=== PATIENT | male | born 1955 | race Caucasian/White ===

== ENCOUNTER → 2018-05-08 | Outpatient (CLI) | payer OTHER | LOC: FIMAGING 12:47 | PROVIDERS: ATTEND Orthopaedic Surgery | DX: S83.252A Bucket-handle tear of lateral meniscus, current injury, left knee, initial encounter (principal); M25.462 Effusion, left knee; M71.22 Synovial cyst of popliteal space [Baker], left knee; Y93.9 Activity, unspecified ==

== ENCOUNTER 2018-06-10 11:07 | Day surgery (SDC) | payer OTHER ==
--- NOTE | 2018-06-09 14:39 | PDGENHP ---
History & Physical Chief Complaint: L knee pain Relevant Physical Exam: Allergies. PENICILLIN V: Other (Mild). Physical ExamR knee: full ext. neutral alignment. 150 flex. L knee: 3 ext. 130 flex. positive mario's. hesitant pivot shift. 3v L knee 04/20/18: no acute bony abnormalities or fx. NVI. Assessment / Plan. L KNEE SCOPE WITH LATERAL MENISCECTOMY SCHEDULED FOR 06/10/18. fu 2 weeks post-operatively. Discuss L knee scope with lateral meniscetomy. Reports symptoms are improved today. No noticeable pain. The knee does not necessarily feel stable, but reports trustworthiness is gradually increasing. He avoids activities that may potentially exacerbate his pain and mechanical symptoms. . No left knee locking in flexion and abduction. L knee with full extension, 160 flexion. Grade I Mario. negative pivot shift. R knee with full extension, 170 flexion. MRI L KNEE 05/08/18: partial ACL tear, displaced bucket handle tear lateral meniscus. While symptoms are currently minimal, it is extremely likely the meniscus will displace again and cause mechnical symptoms. . Recommend Will strongly consider operative management. Discussed risks and benefits associated with surgery. Specifically, left knee scope with lateral meniscectomy. Do not recommend repair due to patient age. May consider ACL recon at a later date pending arthroscopic findings and stability following lateral meniscectomy. Will wants surgery. Scheduled for 06/10/18. fu post-operatively. 25 minutes was spent in face to face contact, greater than 50% of which was spent discussing and coordinating patient care. 1. Knee pain - Left. M25.562: Pain in left knee. 2. Tear of lateral meniscus of knee - Left. S83.282A: Other tear of lateral meniscus, current injury, left knee, initial encounter
--- NOTE | 2018-06-10 09:08 | PDHPUP ---
History & Physical Update H&P update statement: This history and physical update is based on an assessment of the patient which was completed after admission or registration (within 24 hours), but prior to the surgery/procedure. H&P update: changes noted (L knee pain, lateral menisectomy)
[2018-06-10] MEDS ORDERED: CLINDAMYCIN 900 MG/DEXTROSE 50 ML IV ONE (11:25)
[2018-06-10] MEDS ORDERED: LR 1,000 ML IV ONE (11:26)
[2018-06-10] MEDS ORDERED: ROPIVACAINE HCL 20 MG/10 ML INJ EP ONE ×2 (12:24→13:17)
[2018-06-10] MEDS ORDERED: MIDAZOLAM 2 MG/2 ML VIAL IVP ONE (12:37)
--- NOTE | 2018-06-10 12:37 | PDANEPAE ---
ANE History of Present Illness knee scope ANE Past Medical History - Cardiovascular History Hx Hypertension: No Hx Arrhythmias: No Hx Chest Pain: No Hx Coronary Artery / Peripheral Vascular Disease: No Hx CHF / Valvular Disease: No Hx Palpitations: No - Pulmonary History Hx COPD: No Hx Asthma/Reactive Airway Disease: No Hx Recent Upper Respiratory Infection: No Hx Oxygen in Use at Home: No Hx Sleep Apnea: No Sleep Apnea Screening Result - Last Documented: Negative - Neurologic History Hx Cerebrovascular Accident: No Hx Seizures: No Hx Dementia: No - Endocrine History Hx Diabetes: No Hypothyroid: No Hyperthyroid: No - Renal History Hx Renal Disorders: No - Liver History Hx Hepatic Disorders: No - Neurological & Psychiatric Hx Hx Neurological and Psychiatric Disorders: No - Cancer History Hx Cancer: No - Congenital Disorder History Hx Congenital Disorders: No - GI History Hx Gastrointestinal Disorders: No - Other Health History Other Health History: INJURED KNEE 01/2018. TOP LEFT FRONT TOOTH MISSING. AND BACK RIGHT - Chronic Pain History Chronic Pain: Yes (LT KNEE) - Surgical History Prior Surgeries: RT WRIST ORIF WITH POST HARDWARE REMVL ANE Review of Systems Review of systems is: negative Review of Systems: - Exercise capacity Exercise capacity: >=4 METS METS (RN): 6 METS ANE Patient History - Allergies Allergies/Adverse Reactions: Penicillins Allergy (Verified 05/27/18 15:23) Unknown - Home Medications Home medications: home medication list seen and reviewed Home Medications: NK [No Known Home Meds] 05/27/18 [Last Taken Unknown] - NPO status NPO Since - Liquids (Date): 06/10/18 NPO Since - Liquids (Time): 11:00 NPO Since - Solids (Date): 06/09/18 NPO Since - Solids (Time): 22:00 - Smoking Hx Smoking Status: Never smoked ANE Labs/Vital Signs - Vital Signs Blood Pressure: 124/72 Heart Rate: 44 Respiratory Rate: 16 O2 Sat (%): 96 Height: 187.96 cm Weight: 77.111 kg ANE Physical Exam - Airway Mallampati Score: Class 2 Mouth exam: normal dental/mouth exam - Pulmonary Pulmonary: no respiratory distress - Cardiovascular Cardiovascular: regular rate and rhythym - ASA Status ASA Status: I ANE Anesthesia Plan Anesthesia Plan: GA w LMA
[2018-06-10] MEDS ORDERED: LIDOCAINE 2% 5 ML SDV ONE (12:49)
[2018-06-10] MEDS ORDERED: ONDANSETRON 4 MG/2 ML VIAL ONE (12:50)
[2018-06-10] MEDS ORDERED: fentaNYL 100 MCG/2 ML INJ ONE (12:50)
[2018-06-10] MEDS ORDERED: PROPOFOL 200 MG/20 ML VIAL ONE (12:50)
[2018-06-10] MEDS ORDERED: KETOROLAC 30 MG/1 ML SDV ONE (12:50)
[2018-06-10] MEDS ORDERED: DEXAMETHASONE 4 MG/ML VIAL ONE (12:50)
[2018-06-10] MEDS ORDERED: ONDANSETRON 4 MG/2 ML VIAL IVP PRN (14:03)
[2018-06-10] MEDS ORDERED: LR 500 ML IV PRN (14:03)
[2018-06-10] MEDS ORDERED: HYDROCODONE/APAP 5/325 TAB PO PRN (14:03)
[2018-06-10] MEDS ORDERED: ALBUTEROL 3 ML DEYVIAL IH PRN (14:03)
[2018-06-10] MEDS ORDERED: NALOXONE HCL 0.4 MG/ML INJ IVP PRN (14:03)
[2018-06-10] MEDS ORDERED: fentaNYL 100 MCG/2 ML INJ IVP PRN (14:03)
--- NOTE | 2018-06-10 14:03 | POSTANESTH ---
Post Anesthetic Evaluation Cardiovascular Status: Normal, Stable Respiratory Status: Normal, Stable Level of Consciousness/Mental Status: Can Participate in Eval Pain Control: Adequate, Prn Tx Ordered Nausea/Vomiting Control: Adequate, Prn Tx Ordered Complications Possibly Related to Anesthesia: None Noted
[2018-06-10] MEDS ORDERED: OXYCODONE/APAP 5/325 TAB PO PRN (14:08)
--- NOTE | 2018-06-10 14:43 | GOP ---
[f rep st] OPERATIVE REPORT DATE OF OPERATION: 06/10/2018 SURGEON: Matias Masters MD PREOPERATIVE DIAGNOSIS: 1. Left knee lateral meniscus bucket-handle tear. 2. Partial anterior cruciate ligament tear. 3. Medial meniscus tear. POSTOPERATIVE DIAGNOSIS: 1. Left knee lateral meniscus bucket-handle tear. 2. Partial anterior cruciate ligament tear. 3. Medial meniscus tear. PROCEDURE PERFORMED: 1. Arthroscopic partial medial and lateral meniscectomies. 2. Arthroscopic anterior cruciate ligament debridement and synovectomy. FINDINGS: INDICATIONS: 62-year-old male with left knee pain. Prior mechanical locking, catching. Did well wi th conservative management but always felt different in deep flexion and squatting. Active athlete. Clinical, radiographic, and MRI confirmed partial ACL tear with a bucket-handle component to the late ral meniscus with a medial meniscus tear. He had no prior surgeries on the left knee. Patient identified in the preoperative holding area. Consent, laterality, and preoperative antibioti cs were confirmed and delivered. All questions were answered. His was at the bedside. DESCRIPTION OF PROCEDURE: Patient brought into the operating room. General anesthesia. Placed over on the OR table. All extremities well padded. Left thigh tourniquet was placed. Left lower extrem ity prepped and draped in the usual sterile fashion. Surgical time-out was performed. Exam under an esthesia revealed a grade 1 José Luis's with a firm endpoint and a negative pivot shift. He had full e xtension, to 160 degrees flexion. Esmarch exsanguination to 250 mmHg. Total tourniquet time was 30 minutes. Standard 2-portal technique diagnostic arthroscopy included a grade 1 patella, grade 1 softening of t he trochlea, but overall in good condition. The medial compartment also with grade 1 softening. The undersurface of the posterior horn into the middle horn showed a chronic tear that had a displaced s uperior flap. This was beveled off and trimmed, and a medial meniscectomy was performed. The ACL an teromedial bundle was still attached vertically. The posterolateral bundle was torn. There was syno vitis throughout. A synovectomy of the anterior medial and lateral compartments, extensive synovecto my, was performed. Upon removal of the fat pad and synovectomy, we saw the lateral meniscus. With t he lateral meniscus in 90 degrees flexion, the meniscus was dislocated and translocated anteriorly. And then when we went into extension and back into figure 4, it reduced easily, was freely mobile. I t was approximately 60% of the volume of the posterior and middle horn in the red-white junction. Be cause of the chronicity and his age, we decided to do a lateral meniscectomy, and then we trimmed off the posterior portion and then used a shaver to trim down the rest of the middle horn. The anterior horn looked excellent. We beveled the anterior middle horn junction. We switched portals and then beveled the anterior middle horn junction of the medial meniscus. Arthroscopic fluid and debris were removed. 10 cc of 0.2% ropivacaine was injected into the joint, 5 cc to each portal site for 20 cc total. Monocryl, Mastisol, Steri-Strips, Xeroform, 4 x 4s, ABD, and a sterile Asa used. Repeat examination revealed full range of motion, negative pivot shift, and a grade 1 José Luis's. DISPOSITION: Extubated to PACU in stable condition. TOTAL TOURNIQUET TIME: 30 minutes. /[id number]/MODL
[2018-06-10 15:42] VITALS: BP 126/84
== END 2018-06-10 15:30 | disposition home or self-care (01) ==
LOC: FSGY 11:07
PROVIDERS: ATTEND Orthopaedic Surgery
DX: S83.282A Other tear of lateral meniscus, current injury, left knee, initial encounter (principal); S83.512A Sprain of anterior cruciate ligament of left knee, initial encounter; Z88.0 Allergy status to penicillin; X58.XXXA Exposure to other specified factors, initial encounter
CPT/HCPCS: J1100; J1885; J2250; J2405; J2704; J2795; J3010